=== PATIENT | female | born 1975 | race Caucasian/White ===

== ENCOUNTER → 2017-04-01 | Outpatient (CLI) | payer OTHER ==
--- NOTE | ~2017-04-01 | 2DMMODE ---
[facility] [address] [place] [address] 2 D/M-MODE ECHOCARDIOGRAM Name: SAUD MIRELES Room #: REG [facility]#: [id number] Admission: 04/01/17 Attend Phys: Donald Watt Discharge: Date of : 71 Date of Service: 04/01/17 0952 Report #: [id number] THIS REPORT FOR: //name// APPROVED REPORT Study performed: 04/01/2017 10:17:12 EXAM: Comprehensive 2D, Doppler, and color-flow Echocardiogram Patient Location: Out-Patient Status: routine BSA: 1.91 HR: 68 bpm BP: 113/73 mmHg Rhythm: NSR Other Information Study Quality: Adequate Indications Palpitations, Short of breath 2D Dimensions RVDd: 29.75 mm LVEF(%): 70.83 (>50%) IVSd: 8.56 (7-11mm) LVOT Diam: 22.36 (18-24mm) LVDd: 43.56 mm PWd: 8.33 (7-11mm) LVDs: 26.16 (25-40mm) Aortic Root: 31.45 mm Jarvis's LVEF: 70.83 % Volumes Left Atrial Volume (Systole) Single Plane 4CH: 37.43 mL Single Plane 2CH: 46.83 mL LA ESV Index: 24.00 mL/m2 Aortic Valve AoV Peak Celso.: 1.43 m/s AO Peak Gr.: 8.20 mmHg LVOT Max P.74 mmHg LVOT Max V: 1.20 m/s LINDA Vmax: 3.28 cm2 Mitral Valve E/A Ratio: 1.4 MV Decel. Time: 237.09 ms [facility] [place] [address] [place] [address] 2 D/M-MODE ECHOCARDIOGRAM Name: SAUD MIRELES [id number] Admission: 04/01/17 Attend Phys: Donald Watt Discharge: Date of : 71 Date of Service: 04/01/17 0952 Report #: [id number] MV E Max Celso.: 0.83 m/s MV A Celso.: 0.61 m/s MV PHT: 68.76 ms IVRT: 64.59 ms Pulmonary Valve PV Peak Celso.: 0.94 m/s PV Peak Gr.: 3.53 mmHg Pulmonary Vein P Vein S: 0.59 m/s P Vein A: 0.35 m/s P Vein D: 0.46 m/s P Vein A Dur.: 115.3 msec P Vein S/D Ratio: 1.28 Tricuspid Valve TR Peak Celso.: 2.47 m/s RAP Estimate: 5.00 mmHg TR Peak Gr.: 24.40 mmHg PA Pressure: 29.00 mmHg Left Ventricle The left ventricle is normal size. There is normal LV segmental wall motion. There is normal left ventricular wall thickness. Left ventricular systolic function is normal. LVEF is 60%. The left ventricular diastolic function is normal. Right Ventricle The right ventricle is normal size. The right ventricular systolic function is normal. Atria The left atrium size is normal. The right atrium size is normal. Aortic Valve The aortic valve is normal in structure. No aortic regurgitation is present. There is no aortic valvular stenosis. Mitral Valve The mitral valve is normal in structure. Trace mitral regurgitation. No evidence of mitral valve stenosis. Tricuspid Valve The tricuspid valve is normal in structure. Trace to mild tricuspid regurgitation. Estimated PAP is 30mmHg. Pulmonic Valve Pulmonic valve is not well visualized. Trace pulmonic [facility] [address] [place] [address] 2 D/M-MODE ECHOCARDIOGRAM Name: MIRELESSAUD Room #: REG [facility]#: [id number] Admission: 04/01/17 Attend Phys: [facility]: Date of : 71 Date of Service: 04/01/17 0952 Report #: [id number] regurgitation. Great Vessels The aortic root is normal in size. The ascending aorta is normal in size. IVC is normal in size and collapses >50% with inspiration. Pericardium There is no pericardial effusion. <Conclusion> The left ventricle is normal size. LVEF is 60%. The aortic valve is normal in structure. The mitral valve is normal in structure. Trace mitral regurgitation. The tricuspid valve is normal in structure. Trace to mild tricuspid regurgitation. Estimated PAP is 30mmHg. Pulmonic valve is not well visualized. Trace pulmonic regurgitation. There is no pericardial effusion. <ELECTRONICALLY SIGNED> By: Joel Blum MD 04/01/1752 1 1 Joel Blum MD /INF
== END ==
LOC: CV 06:28
DX: I47.1 Supraventricular tachycardia (principal); R00.2 Palpitations; R06.02 Shortness of breath